=== PATIENT | male | born 1995 | race Hispanic/Latino ===

== ENCOUNTER 2018-04-20 06:05 | Day surgery (SDC) | payer OTHER ==
[~2018-04-20 06:05] MED LIST: LACTATED RINGERS 1,000 ML IV SCH; VERSED IV NR
[2018-04-20] MEDS ORDERED: ANCEF/STERILE WATER 2 GM/20 ML IV NR (07:00)
[2018-04-20] MEDS ORDERED: NACL BACTERIOSTATIC INFILTRATI ONE (07:01)
--- NOTE | 2018-04-20 07:09 | Anesthesia Day of Surgery ---
Anesthesia Day of Surgery - Day of Surgery Patient Examined: Yes Patient H&P Reviewed: Yes Patient is NPO: Yes
--- NOTE | 2018-04-20 07:10 | Anesthesia Consultation ---
Anesthesia Consult and Med Hx Date of service: 04/20/18 - Airway Anesthetic Teeth Evaluation: Good ROM Head & Neck: Adequate Mental/Hyoid Distance: Adequate Intubation Access Assessment: Difficult - Pulmonary Exam CTA: Yes - Cardiac Exam Cardiac Exam: RRR - Pre-Operative Health Status ASA Pre-Surgery Classification: ASA2 Proposed Anesthetic Plan: General - Central Nervous System Hx Psychiatric Problems: No - Other Systems Hx Alcohol Use: No Hx Substance Use: No Hx Cancer: No
[2018-04-20] MEDS ORDERED: SUBLIMAZE ONE (07:11)
[2018-04-20] MEDS ORDERED: DIPRIVAN 10 MG/ML IV ONE (07:12)
[2018-04-20] MEDS ORDERED: XYLOCAINE MPF 2% ONE (07:19)
[2018-04-20] MEDS ORDERED: DILAUDID IV PRN (07:23)
[2018-04-20] MEDS ORDERED: XYLOCAINE 1% 20 mL ONE (08:13)
[2018-04-20] MEDS ORDERED: MARCAINE 0.5% 30 ML INFILTRATI ONE (08:13)
--- NOTE | 2018-04-20 08:42 | Operative Report ---
PREOPERATIVE DIAGNOSIS: Angle of mandible fracture. POSTOPERATIVE DIAGNOSIS: Angle of mandible fracture. PROCEDURE: Removal of hardware, deep x 4. SURGEON: Fernando Diamond MD [employer] SALES REPRESENTATIVE: None. FINDINGS: 4 Julio C [employer] screws. DESCRIPTION OF PROCEDURE: The patient was brought to the operating room and placed on the table in supine position. Following administration of IV sedation, the patient was prepped with Betadine solution, draped in usual sterile manner. Wire cutters were used to cut the wires, which were removed. The screws were buried under the mucosa. Following administration of overlying mucosa, the screws were exposed and removed and sent to pathology as specimen. The patient tolerated the procedure well and returned to recovery room in stable condition. JOB# [id number] FTW/NTS
[2018-04-20 10:01] VITALS: BP 115/69
--- NOTE | 2018-04-20 14:27 | Post Anesthesia Evaluation ---
- Post Anesthesia Evaluation Patient Participated: Yes Airway Patent: Yes Stable Respiratory Function: Yes Nausea/Vomiting: No Temp > 96.8F: Yes Pain Manageable: Yes Adequeate Hydration: Yes Anesthesia Complications: No
== END 2018-04-20 10:15 | disposition home or self-care (01) ==
LOC: OR 06:05
PROVIDERS: ATTEND Plastic Surgery
DX: Z47.2 Encounter for removal of internal fixation device (principal)
CPT/HCPCS: 20680; J1170; J2250; J2704; J3010; J7120; J0690